=== PATIENT | female | born 1955 | race Caucasian/White ===

== ENCOUNTER 2017-09-11 11:27 | Outpatient (CLI) ==
[2014-05-29 14:52] VITALS: BMI 30.6
--- NOTE | 2017-09-11 16:10 | CT ---
Exam: CT of the brain without intravenous contrast. Comparison: None available. Reason for exam: Vertigo. FINDINGS: No acute intracranial hemorrhage, mass effect, ventricular dilatation, or territorial infa rction. The quadrigeminal and ambient cisterns are patent. There is no extraaxial fluid collection. The calvarium appears intact. Parenchymal changes are seen consistent with chronic microvascular d isease. No discrete air fluid levels are seen in the paranasal sinuses. Impression: 1. No acute intracranial findings. 2. Parenchymal changes consistent with chronic microvascular disease
== END 2017-09-11 11:28 | disposition home or self-care (01) ==
LOC: RAD 11:27
PROVIDERS: ATTEND Family Medicine
DX: R42 Dizziness and giddiness (principal)

== ENCOUNTER 2018-04-22 09:43 | Outpatient (CLI) ==
[2014-05-29 14:52] VITALS: BMI 30.6
--- NOTE | 2018-04-22 10:49 | DI ---
EXAM: PA and lateral views of the chest HISTORY: Cough. COMPARISON: Chest x-ray 05/29/2014 and multiple priors FINDINGS: The cardiomediastinal silhouette is unchanged with intact sternotomy wires and cardiac leyda ve. There is no pneumothorax or pleural effusion. There is no consolidation, nodule or mass. There is interstitial ground-glass in the lung bases. The osseous structures demonstrate degenerative dis ease of the spine. IMPRESSION: Lungs are mildly hyperinflated with interstitial opacities in the lung bases and may represent small airways inflammation versus mild fibrosis/atelectasis.
== END 2018-04-22 09:44 | disposition home or self-care (01) ==
LOC: RAD 09:43
PROVIDERS: ATTEND Family Medicine
DX: R05 Cough (principal); J40 Bronchitis, not specified as acute or chronic; J32.9 Chronic sinusitis, unspecified